=== PATIENT | male | born 1960 | race African-American/Black ===

== ENCOUNTER 2025-08-04 14:07 | Emergency (ER) | payer MEDICARE, SELFPAY ==
[2025-08-04 14:10] VITALS: PULSE 78
[2025-08-04 14:12] VITALS: BP 200/90; PULSE 74; TEMP 36.7; O2SAT 96; BMI 32.5
--- NOTE | 2025-08-04 14:33 | XR_ITS ---
The [address] [address] Patient Name: AMPARO MCCLENDON MRN: [id number] date: 1960 Sex: M Assigned Patient Location: ER Current Patient Location: ER Accession/Order Number: [id number] Exam Date: 08/04/2025 14:40 Report Date: 08/04/2025 15:01 At the request of: FAIZAN HOLT Procedure: XR foot RT min 3V XR foot RT min 3V 08/04/2025 2:45 PM SIGNS AND SYMPTOMS: ^Foot pain, 1st MTP joint PROTOCOL: 3 views of the right foot COMPARISON: None FINDINGS: Degenerative changes are noted in the first metatarsophalangeal joint with soft tissue swelling medially. There is no fracture or dislocation. Degenerative changes are noted in the talonavicular joint with spurring along the superior margin of the navicular. XR/XR foot RT min 3V IMPRESSION: No acute bony injury. Degenerative changes are noted in the first metatarsophalangeal joint with soft tissue swelling medially. Impression dictated by: Celso Byrne M.D. 08/04/2025 3:01 PM Dictation Location: [place] [address] Electronically authenticated by: [id number] Y Date: 08/04/2025 15:01
--- NOTE | 2025-08-04 14:35 | ED_ITS ---
HPI HPI - General Adult General Chief complaint: Extremity Problem, Nontraumatic Stated complaint: LOWER EXTREMITY PAIN Time Seen by Provider: 08/04/25 14:21 Source: patient Mode of arrival: walk-in Limitations: no limitations History of Present Illness HPI narrative: Patient is a 64-year-old male with a PMH of HTN, cardiac stents, type 2 diabetes on insulin that presents with right foot pain and swelling since Monday, 3 days ago. He denies any injury. He states that he was seen in the ER somewhere previously for this before he moved and was given Motrin 800 mg with good relief of his pain. He denies any history of gout. He states that he also moved back here from [place] and wants to find a local cardiology group for his yearly checkups. Before he moved he previously saw the [facility]'s associated wine master but wants somebody more local. Related Data Previous Rx's ?Medication ?Instructions ?Recorded clopidogrel 75 mg tablet (Plavix) 75 mg PO DAILY #21 t abs 08/04/25 lisinopril 20 mg tablet 20 mg PO DAILY #21 tabs 07/19 04/11 Allergies Allergy/AdvReac Type Severity Reaction Status Date / Time No Known Drug Allergies Allergy Verified 08/04/25 14:19 Opioid HPI Opioid Management Most Recent Opioid Data: Last Pain Scale 6 Today, 14:56 Last MAR Pain Assessment Today, 14:56 Review of Systems ROS Status of ROS 10 or more systems reviewed and unremark able except as noted in h istory and below PFSH PFSH Social History Little interest or pleasure in doing things: not at all Feeling down, depressed, or hopeless: not at all Exam Narrative Exam Narrative: General: No distress, age-appropriate Skin: Warm, dry, no pallor. No rash. Head: Normocephalic, atraumatic. Neck: Supple, non-tender. Eye: Pupils are equal, round and EOMI. No scleral icterus. Ears, Nose, Mouth, and Throat: No nasal mucosal hypertrophy. Oral mucosa is moist, no posterior oropharynx erythema, uvula is mid-line Cardiovascular: Regular Rate and Rhythm without murmur, gallop or rub. Respiratory: No accessory muscle use or respiratory distress. Musculoskeletal: Full ROM of all extremities, no calf or popliteal tenderness. Bilateral feet with hallux valgus deformity, more pronounced on the right. Tenderness with palpation medial right MTP joint. Full great toe ROM in flexion and extension. 2+ DP pulse. Less than 2-second capillary refill to all toes. No wounds to foot. No erythema or warmth. Neurological: A&O x4. No cranial nerve dysfunction observed. No truncal ataxia. Moves all extremities. Sensation intact. Psychiatric: Cooperative and interactive. Normal mood and affect. Constitutional Vital Signs, click to edit/add: Last Vital Signs Temp 98.1 F 08/04/25 14:12 Pulse 74 08/04/25 14:12 Resp 18 08/04/25 14:12 BP 187/92 H 08/04/25 16:13 Pulse Ox 96 08/04/25 14:12 O2 Del Method Room Air 08/04/25 14:12 Documenting provider has reviewed patient's vital signs: yes Course Vital Signs Vital signs: Vital Signs Pulse Rate 78 08/04/25 14:10 Temperature 98.1 F 08/04/25 14:12 Pulse Rate 74 08/04/25 14:12 Respiratory Rate 18 08/04/25 14:12 Blood Pressure 187/92 H 08/04/25 16:13 Pulse Oximetry 96 08/04/25 14:12 Oxygen Delivery Method Room Air 08/04/25 14:12 Medical Decision Making MDM Narrative Medical decision making narrative: This is a 64-year-old male with complaints of 3 days of right great toe pain that started without any injury. He notes that the inside of his big toe is rubbing on his shoe. Pain is relieved somewhat when shoe is removed. Minimal discomfort with ambulation. No history of gout. He does have a hallux valgus deformity of the bilateral feet, greater on the right. Tenderness at the medial MTP joint. No erythema, mild swelling. No wounds to the foot. Toradol 30mg IM given for pain control. XRay Right foot ordered and reveals no acute bony injury per Rad read. Degenerative changes are noted in the first metatarsophalangeal joint with soft tissue swelling medially. Results discussed with patient. Patient also asks RN if we can refill his lisinopril and Plavix that he has been out of for 10 days. He did ask me if we could refer him to a local cardiology group here as he just moved back from [place]. Will refer him to a [facility] cardiology provider. BMP ordered. BP 200/90, patient asymptomatic at this time. BMP reviewed, no hyperkalemia, CR 1.21,BUN, 18. Renal function and potassium were normal, making continuation of lisinopril appropriate; no bleeding issues noted, so Plavix was also safely refilled. Pain control and supportive care initiated. I recommended Voltaren Gel OTC for inflammatory pain of his Bunion. He requested Motrin 800mg, but I discussed this is contraindicated as he does take Plavix/ASA. Patient advised on strict return precautions due to diabetic foot risk. He was provided a referral for a local cardiology group with [facility] for ongoing management of his cardiac history. I also referred him to Dr Lin for further evaluation and management of his Bunions. BP rechecked and 187/92, chronic HTN med refilled and sent to pharmacy as above. He will follow up with a PCP as well. Condition stable at discharge. Differential Diagnosis Differential Diagnosis: Hallux valgus, MTP OA, gout flare, stress fracture Lab Data Lab results reviewed: Yes I reviewed the patient's lab results Labs: Lab Results 08/04/25 Range/Units 15:38 Sodium 140 (136-145) mmol/L Potassium 4.0 (3.5-5.1) mmol/L Chloride 106 (98-107) mmol/L Carbon Dioxide 24.6 (21.0-32.0) mmol/L Anion Gap 13.4 BUN 18.0 (7.0-18.0) mg/dL Creatinine 1.21 (0.70-1.30) mg/dL Est GFR ( Amer) >60 (>=60 mL/min/1.73m^2) Est GFR (Non-Af Amer) >60 (>=60 mL/min/1.73m^2) BUN/Creatinine Ratio 14.9 Glucose 133 H (74-106) mg/dL Calcium 8.9 (8.5-10.1) mg/dL Imaging Data Right Foot Xray: Attestation: I have reviewed the pertinent imaging results. Radiologist's impression: ITS Impressions Foot X-Ray 08/04/25 14:33 IMPRESSION: No acute bony injury. Degenerative changes are noted in the first metatarsophalangeal joint with soft tissue swelling medially. Impression dictated by: Celso Byrne M.D. 08/04/2025 3:01 PM Dictation Location: [place] [address] Electronically authenticated by: [id number] Y Date: 08/04/2025 15:01 Discharge Plan Discharge Chief Complaint: Extremity Problem, Nontraumatic Clinical Impression: Bunion of great toe, Osteoarthritis of first metatarsophalangeal (MTP) joint of right foot Patient Disposition: Home, Self-Care Time of Disposition Decision: 15:40 Condition: Good Mode of Transportation: Private Vehicle Prescriptions / Home Meds: New lisinopril 20 mg tablet 20 mg PO DAILY Qty: 21 0RF clopidogrel [Plavix] 75 mg tablet 75 mg PO DAILY Qty: 21 0RF Print Language: Armenian Instructions: Herlinda (ED) Additional Instructions: 1. Topical anti-inflammatory gel * Buy Voltaren (diclofenac) gel over the counter. * Apply to the painful area 2?4 times per day as directed on the package. * This helps reduce pain and swelling with much less risk than oral anti- inflammatory pills (Motrin, Ibuprofen) 2. Pain control * You may use acetaminophen (Tylenol) for pain if needed. * Do NOT take ibuprofen, naproxen, or Motrin because you are on Plavix, which increases your bleeding risk. 3. Foot care * Wear wide, comfortable shoes that don?t press on your big toe. * You may use bunion pads for protection. * Ice the area 10?15 minutes, 3?4 times a day for pain and swelling. * Avoid long walks or standing for long periods until the pain improves. Medication Refills Provided You were given short-term refills for: * Plavix (clopidogrel) * Lisinopril Please continue taking these exactly as prescribed. Do not stop Plavix unless a wine master tells you to. Follow-Up * Primary Care Provider: Make an appointment within 1 week to review your medications and recent labs. * Podiatry: You may need follow-up for bunion management, shoe/orthotic recommendations, and long-term care. Return to the ER Immediately If You Develop: * Redness, warmth, or swelling in the foot * Fever or chills * Sudden worsening pain * Numbness, tingling, or inability to walk * Chest pain or shortness of breath * Any bleeding that won?t stop Referrals: Yovany Gomez MD [Physician, Cardiology] - As soon as possible Danny Lin DPM [Physician, Podiatry] - 1-2 weeks Discharge Date/Time: 08/04/25 16:13
[2025-08-04] MEDS: KETOROLAC TROMETHAMINE 30 MG/ML VIAL IM (14:56)
--- NOTE | 2025-08-04 15:49 | PC.NURSE ---
pt admits to being out of his lisinopril and plavix for 10 days. would like us to get him through the next 10 days or so until he can get into a new PCP. informed YANET Moore
[2025-08-04 15:56] LABS: Anion Gap 13.4; Blood Urea Nitrogen 18.0 mg/dL (7.0-18.0); Calcium 8.9 mg/dL (8.5-10.1); Carbon Dioxide 24.6 mmol/L (21.0-32.0); Chloride 106 mmol/L (98-107); Estimated GFR (African America >60 (>=60 mL/min/1.73m^2); Estimated GFR (Non-African Ame >60 (>=60 mL/min/1.73m^2); Glucose 133 mg/dL (74-106); Potassium 4.0 mmol/L (3.5-5.1); Sodium 140 mmol/L (136-145)
[2025-08-04 16:13] VITALS: BP 187/92
== END 2025-08-04 16:13 | disposition home or self-care (01) ==
LOC: ER 15:50
PROVIDERS: Physician Assistant; Emergency Provider Emergency Medicine
DX: M21.611 Bunion of right foot (principal); M19.071 Primary osteoarthritis, right ankle and foot; I10 Essential (primary) hypertension; Z95.5 Presence of coronary angioplasty implant and graft; E11.9 Type 2 diabetes mellitus without complications; Z79.4 Long term (current) use of insulin; Z79.02 Long term (current) use of antithrombotics/antiplatelets; Z79.899 Other long term (current) drug therapy
CPT/HCPCS: 36415; 73630; 80048; 96372; 99285; J1885